=== PATIENT | male | born 1950 | race Caucasian/White ===

== ENCOUNTER → 2016-07-08 | Outpatient (CLI) | payer BC ==
[~2016-07-08] MED LIST: ASPEC325 PO; CLB200 PO; LISI-461 PO; LRT5 PO
== END | disposition home or self-care (01) ==
LOC: C.PATHSPEC 09:47
PROVIDERS: ATTEND Orthopaedic Surgery
DX: M18.11 Unilateral primary osteoarthritis of first carpometacarpal joint, right hand (principal)